=== PATIENT | female | born 1940 | race Caucasian/White ===

== ENCOUNTER 2020-06-02 19:20 | Inpatient (IN) | payer MEDICARE ==
[~2020-06-02] VITALS: Ht 157.5 cm; Wt 82.6 kg
[2020-06-02] MEDS ORDERED: SODIUM CHLORIDE 0.9% 1000ML 1,000 ML IV ONE (19:45)
[2020-06-02] MEDS ORDERED: CEFTRIAXONE SOD 1 GM/NS 50 ML 50 ML IV ONE (19:45)
[2020-06-02] MEDS ORDERED: ACETAMINOPHEN 325 MG TAB PO PRN ×2 (19:45→21:15)
[2020-06-02 19:54] LABS: BASOPHILS % 0.3 % (0.0-1.0); EOSINOPHILS # (AUTO) 0.1 (0.0-0.4); EOSINOPHILS % 0.9 % (0.0-6.0); HEMATOCRIT 50.5 % (34.2-44.1); LYMPHOCYTES # (AUTO) 1.2 (1.0-3.2); LYMPHOCYTES % 18.3 % (18.0-39.1); MEAN CORPUSCULAR HEMOGLOBIN 30.7 pg (28-32); MEAN CORPUSCULAR HGB CONC 31.7 g/dL (31-35); MEAN CORPUSCULAR VOLUME 96.7 fL (81-99); MONOCYTES # (AUTO) 0.5 (0.2-0.8); MONOCYTES % 7.2 % (4.4-11.3); PLATELET COUNT 221 x10e3/uL (140-360); RED BLOOD COUNT 5.22 x10e6/uL (3.6-5.1); RED CELL DISTRIBUTION WIDTH 13.4 % (11.7-14.4)
[2020-06-02 20:13] LABS: ALANINE AMINOTRANSFERASE 10 IU/L (0-55); ALBUMIN 3.8 g/dL (3.5-5.0); ALBUMIN/GLOBULIN RATIO 1.4 (0.8-2.0); ALKALINE PHOSPHATASE 72 IU/L (40-150); BLOOD UREA NITROGEN 15 mg/dL (7-26); BUN/CREATININE RATIO 19 (6-25); CALCIUM 8.9 mg/dL (8.4-10.2); CARBON DIOXIDE 26 mmol/L (22-29); CHLORIDE 103 mmol/L (98-107); CREATINE KINASE 46 IU/L (29-168); EST GLOMERULAR FILTRATION RATE > 60 ML/MIN (60-); GLUCOSE 108 mg/dL (74-118); SODIUM 141 mmol/L (136-145)
[2020-06-02] MEDS: AZITHROMYCIN 500MG/SOD CHL 0.9% 250ML BAG IV SCH (21:57)
[2020-06-02] MEDS: SODIUM CHLORIDE 0.9% 1000ML 1,000 ML IV SCH (21:57)
[2020-06-02 23:00] VITALS: BP 163/99
[2020-06-02 23:17] VITALS: BP 163/99
[2020-06-02] MEDS ORDERED: TEMAZEPAM15 MG PO (23:58)
[2020-06-03] VITALS (11 sets, daily range): BP systolic 142–174; BP diastolic 71–99
[2020-06-03] MEDS ORDERED: METOPROLOL TARTRATE 25 MG TAB PO SCH
[2020-06-03] MEDS: TEMAZEPAM 15 MG CAP PO PRN ×2 (00:04→23:00)
[2020-06-03] MEDS: SODIUM CHLORIDE 0.9% 1000ML 1,000 ML IV SCH ×4 (03:51→21:46)
[2020-06-03 05:26] LABS: BASOPHILS % 0.7 % (0.0-1.0); EOSINOPHILS # (AUTO) 0.1 (0.0-0.4); EOSINOPHILS % 1.6 % (0.0-6.0); HEMATOCRIT 45.6 % (34.2-44.1); HEMOGLOBIN 14.3 g/dL (12.0-16.0); LYMPHOCYTES # (AUTO) 1.1 (1.0-3.2); LYMPHOCYTES % 25.6 % (18.0-39.1); MEAN CORPUSCULAR HEMOGLOBIN 30.8 pg (28-32); MEAN CORPUSCULAR HGB CONC 31.4 g/dL (31-35); MEAN CORPUSCULAR VOLUME 98.3 fL (81-99); MONOCYTES # (AUTO) 0.4 (0.2-0.8); MONOCYTES % 9.7 % (4.4-11.3); NEUTROPHILS # (AUTO) 2.7 (2.1-6.9); NEUTROPHILS % 62.4 % (38.7-80.0); PLATELET COUNT 180 x10e3/uL (140-360); RED BLOOD COUNT 4.64 x10e6/uL (3.6-5.1); RED CELL DISTRIBUTION WIDTH 13.2 % (11.7-14.4)
[2020-06-03 05:56] LABS: ALANINE AMINOTRANSFERASE 8 IU/L (0-55); ALBUMIN/GLOBULIN RATIO 1.4 (0.8-2.0); ALKALINE PHOSPHATASE 58 IU/L (40-150); ANION GAP 12.8 mmol/L (8-16); BLOOD UREA NITROGEN 13 mg/dL (7-26); BUN/CREATININE RATIO 19 (6-25); CALCIUM 8.2 mg/dL (8.4-10.2); CARBON DIOXIDE 25 mmol/L (22-29); CHLORIDE 107 mmol/L (98-107); CREATININE, SERUM 0.68 mg/dL (0.57-1.11); EST GLOMERULAR FILTRATION RATE > 60 ML/MIN (60-); GLUCOSE 90 mg/dL (74-118); POTASSIUM 3.8 mmol/L (3.5-5.1); SODIUM 141 mmol/L (136-145)
[2020-06-03 06:22] LABS: CREATINE KINASE MB 0.6 ng/mL (0-5.0)
[2020-06-03] MEDS ORDERED: ZOLPIDEM TARTRATE 5 MG TAB PO PRN (06:45)
[2020-06-03] MEDS ORDERED: ONDANSETRON HCL INJ 2MG/ML 2ML 2 MG/ML VIAL IV PRN (06:45)
[2020-06-03] MEDS ORDERED: DOCUSATE SODIUM 100 MG CAP PO PRN (06:45)
[2020-06-03] MEDS: PIPER-TAZ 3.375 GM 50 ML IV SCH ×3 (07:25→17:28)
[2020-06-03] MEDS: METOPROLOL TARTRATE 25 MG TAB PO SCH ×3 (09:13→21:41)
[2020-06-03 10:36] LABS: CLARITY,URINE SL CLOUDY (CLEAR); COLOR,URINE YELLOW (YELLOW)
[2020-06-03 10:37] LABS: LEUKOCYTE ESTERASE ,URINE NEGATIVE (NEGATIVE); NITRITE,URINE NEGATIVE (NEGATIVE); PROTEIN,URINE DIPSTICK 1+ (NEGATIVE)
[2020-06-03 10:38] LABS: BACTERIA,URINE RARE /HPF; EPITHELIAL CELLS,URINE FEW /LPF; KETONES,URINE TRACE (NEGATIVE); URINE UROBILINOGEN 1 mg/dL (0.2 - 1)
[2020-06-03 13:30] LABS: CREATINE KINASE MB 0.8 ng/mL (0-5.0)
[2020-06-03] MEDS: ENOXAPARIN SOD INJ 40 MG/0.4 ML SYR SC SCH (17:28)
[2020-06-03] MEDS ORDERED: CEFTRIAXONE SOD 1 GRAM/0.9% SOD CHL 50ML BAG IV SCH (21:00)
[2020-06-03] MEDS: AZITHROMYCIN 500MG/SOD CHL 0.9% 250ML BAG IV SCH (21:41)
[2020-06-04] VITALS (7 sets, daily range): BP systolic 127–185; BP diastolic 76–101
[2020-06-04] MEDS: PIPER-TAZ 3.375 GM 50 ML IV SCH ×5 (00:01→23:56)
[2020-06-04] MEDS: SODIUM CHLORIDE 0.9% 1000ML 1,000 ML IV SCH (05:15)
[2020-06-04] MEDS: METOPROLOL TARTRATE 25 MG TAB PO SCH ×3 (06:23→21:28)
[2020-06-04] MEDS: ENOXAPARIN SOD INJ 40 MG/0.4 ML SYR SC SCH (17:00)
[2020-06-04] MEDS: AZITHROMYCIN 500MG/SOD CHL 0.9% 250ML BAG IV SCH (20:59)
[2020-06-04] MEDS: TEMAZEPAM 15 MG CAP PO PRN (22:22)
[2020-06-05] VITALS: BP 169/87
[2020-06-05 04:00] VITALS: BP 129/69
[2020-06-05] MEDS: PIPER-TAZ 3.375 GM 50 ML IV SCH (05:32)
[2020-06-05] MEDS: METOPROLOL TARTRATE 25 MG TAB PO SCH (06:00)
[2020-06-05] MEDS ORDERED: LOPRESSOR25 MG PO (06:27)
[2020-06-05] MEDS ORDERED: TESSALON PERLE100 MG PO ×2 (06:27)
[2020-06-05] MEDS ORDERED: DOXYCYCLINE HY100 MG PO (06:27)
[2020-06-05] MEDS ORDERED: LORATADINE10 MG PO (06:27)
[2020-06-05] MEDS ORDERED: CEFUROXIME250 MG PO (06:27)
[2020-06-05] MEDS ORDERED: ONDANSETRON HCL 4 MG ORAL DISINTEGRATING TAB PO PRN (08:15)
[2020-06-05 08:20] VITALS: BP 151/66
[2020-06-05 09:36] VITALS: BP 151/66
[2020-06-05] MEDS ORDERED: INFLUENZA VIRUS VAC SPLIT INJ 0.5 ML SYR IM ONE (10:00)
[2020-06-05] MEDS ORDERED: PNEUMOCOCCAL VACCINE POLYVALENT 23 MCG/0.5 ML VIAL IM ONE (10:00)
[2020-06-05] MEDS ORDERED: AZITHROMYCIN 250 MG TAB PO SCH (21:00)
== END 2020-06-05 10:20 | disposition home or self-care (01) | DRG 194 ==
LOC: ER 19:55 → ERHOLD 21:14 → MED/SURG2 22:48
PROVIDERS: ADMIT Internal Medicine; ATTEND Internal Medicine
DX: J18.9 Pneumonia, unspecified organism (principal); N39.0 Urinary tract infection, site not specified; K44.9 Diaphragmatic hernia without obstruction or gangrene; G47.00 Insomnia, unspecified; E66.9 Obesity, unspecified; Z68.33 Body mass index [BMI] 33.0-33.9, adult; Z11.59 Encounter for screening for other viral diseases; I10 Essential (primary) hypertension
CPT/HCPCS: 36415; 71250; 80053; 80061; 81001; 82550; 82553; 82948; 83036; 83605; 83880; 84484; 85025; 87040; 87086; 90732; 93005; 99284; G0009; J0456; J0696; J1650; J2543; J7030; U0002

== ENCOUNTER 2023-01-18 07:46 | Observation (INO) | payer MEDICARE ==
[2023-01-15 10:36] LABS: BASOPHILS % 0.4 % (0.0-1.0); EOSINOPHILS # (AUTO) 0.1 (0.0-0.4); EOSINOPHILS % 0.9 % (0.0-6.0); HEMATOCRIT 35.8 % (34.2-44.1); HEMOGLOBIN 10.7 g/dL (12.0-16.0); LYMPHOCYTES # (AUTO) 0.7 (1.0-3.2); LYMPHOCYTES % 12.7 % (18.0-39.1); MEAN CORPUSCULAR HEMOGLOBIN 25.9 pg (28-32); MEAN CORPUSCULAR HGB CONC 29.9 g/dL (31-35); MEAN CORPUSCULAR VOLUME 86.7 fL (81-99); MONOCYTES # (AUTO) 0.3 (0.2-0.8); NEUTROPHILS # (AUTO) 4.4 (2.1-6.9); NEUTROPHILS % 79.8 % (38.7-80.0); PLATELET COUNT 245 x10e3/uL (140-360); RED BLOOD COUNT 4.13 x10e6/uL (3.6-5.1); RED CELL DISTRIBUTION WIDTH 15.7 % (11.7-14.4)
[2023-01-18] VITALS (7 sets, daily range): BP systolic 136–171; BP diastolic 58–82; PULSE 82–89; RESP 15–20; TEMP 97.5–98.9; O2SAT 96–98
[~2023-01-18] VITALS: Ht 309.9 cm; Wt 82.6 kg
[~2023-01-18 07:46] MED LIST: ACETAMINOPHEN 1000 MG/100 ML 100 ML IV ONE; BIOTIN1 MG PEG; CEFUROXIME250 MG PO; CRESTOR10 MG PO; DOXYCYCLINE HY100 MG PO; GABAPENTIN100 MG PO; LOPRESSOR25 MG PO; LORATADINE10 MG PO; LOSARTAN POTASS25 MG PO; METHOCARBAMOL1000 MG PO; NAPROXEN250 MG PO; ROPIVACAINE 246.25 MG, EPINEPHRINE HCL 1:1000 1ML 0.5 MG, CLONIDINE HCL 0.08 MG, KETORO... INJ ONE; TEMAZEPAM15 MG PO; TESSALON PERLE100 MG PO
[2023-01-18] MEDS ORDERED: DEXAMETHASONE SOD PHOS 10 MG/1 ML VIAL ONE (08:16)
[2023-01-18] MEDS ORDERED: CELECOXIB 200 MG CAP ONE (08:16)
[2023-01-18] MEDS ORDERED: GABAPENTIN 300 MG CAP ONE (08:16)
[2023-01-18] MEDS ORDERED: LACTATED RINGER'S 1,000 ML ONE (08:17)
[2023-01-18] MEDS ORDERED: CEFAZOLIN SODIUM 2 GM ONE (08:17)
[2023-01-18] MEDS ORDERED: Vancomycin IV 1,000 MG ONE (08:32)
[2023-01-18] MEDS ORDERED: SODIUM CHLORIDE 0.9% 500ML 500 ML ONE (08:33)
[2023-01-18] MEDS ORDERED: TRANEXAMIC ACID 20 ML ONE (08:33)
[2023-01-18] MEDS ORDERED: ADVIL200 MG PO (08:45)
[2023-01-18] MEDS ORDERED: FENTANYL CITRATE/PF 100MCG/2 ML INJ ONE ×2 (09:07→13:03)
[2023-01-18] MEDS ORDERED: MIDAZOLAM HCL 2 MG/2 ML VIAL ONE (09:07)
[2023-01-18] MEDS ORDERED: HYDROCODONE/APAP 5MG-325MG TAB PO PRN (10:45)
[2023-01-18] MEDS ORDERED: ONDANSETRON HCL INJ 2MG/ML 2ML 2 MG/ML VIAL IV PRN (10:45)
[2023-01-18] MEDS ORDERED: DOCUSATE SODIUM 100 MG CAP PO PRN (10:45)
[2023-01-18] MEDS ORDERED: ACETAMINOPHEN 650 MG SUPP PR PRN (10:45)
[2023-01-18] MEDS ORDERED: ZOLPIDEM TARTRATE 5 MG TAB PO PRN (10:45)
[2023-01-18] MEDS ORDERED: DIPHENHYDRAMINE HCL INJ 50 MG/ML VIAL IV PRN (10:45)
[2023-01-18] MEDS ORDERED: HYDROCODONE/APAP 7.5MG-325MG 1 EA TAB PO ONE (11:50)
[2023-01-18] MEDS: HYDROCODONE/APAP 7.5MG-325MG 1 EA TAB PO PRN (11:50)
[2023-01-18] MEDS ORDERED: SEVOFLURANE INHAL SOLN 250 ML PEN BTL ONE (12:47)
[2023-01-18] MEDS ORDERED: LIDOCAINE HCL 2% LOCAL INJ 5 ML SDV VIAL INJ ONE (12:47)
[2023-01-18] MEDS ORDERED: ONDANSETRON HCL INJ 2MG/ML 2ML 2 MG/ML VIAL ONE (12:47)
[2023-01-18] MEDS ORDERED: EPHEDRINE SULFATE INJ 50 MG/ML VIAL ONE (12:47)
[2023-01-18] MEDS ORDERED: POVIDONE IODINE 0.05% 0.05 % ML PO ONE (12:47)
[2023-01-18] MEDS ORDERED: DEXAMETHASONE SOD PHOS INJ 4 MG/ML SDV ONE (12:47)
[2023-01-18] MEDS ORDERED: PROPOFOL IV EMULSION 10 MG/ML 20 ML VIAL ONE (12:47)
[2023-01-18] MEDS: SODIUM CHLORIDE 0.9% 1000ML 1,000 ML IV SCH ×2 (15:48→20:45)
[2023-01-18] MEDS: CELECOXIB 200 MG CAP PO SCH (16:38)
[2023-01-18] MEDS: ASPIRIN 325 MG TAB PO SCH (16:38)
[2023-01-19 05:52] LABS: HEMATOCRIT 32.1 % (34.2-44.1); HEMOGLOBIN 9.4 g/dL (12.0-16.0)
[2023-01-19] MEDS: SODIUM CHLORIDE 0.9% 1000ML 1,000 ML IV SCH (06:45)
[2023-01-19 08:00] VITALS: BP 121/56; PULSE 85; RESP 18; TEMP 98.2; O2SAT 97
[2023-01-19] MEDS: CELECOXIB 200 MG CAP PO SCH (08:49)
[2023-01-19] MEDS: ASPIRIN 325 MG TAB PO SCH (08:49)
[2023-01-19] MEDS ORDERED: CRESTOR 10MG PO SCH (09:00)
[2023-01-19] MEDS ORDERED: LOSARTAN POTASSIUM 25 MG TAB PO SCH (09:00)
[2023-01-19 09:20] VITALS: BP 121/56; PULSE 85; RESP 18; TEMP 98.2; O2SAT 97
[2023-01-19 09:31] VITALS: PULSE 80; RESP 18; O2SAT 93
[2023-01-19] MEDS ORDERED: ACETAMINOPHEN 1000 MG/100 ML IV PRN (10:45)
[2023-01-19] MEDS: HYDROCODONE/APAP 7.5MG-325MG 1 EA TAB PO PRN ×2 (11:01→14:48)
[2023-01-19 12:00] VITALS: BP 132/57; PULSE 82; RESP 19; TEMP 98.6; O2SAT 97
[2023-01-19] MEDS ORDERED: ONDANSETRON HCL 4 MG ORAL DISINTEGRATING TAB PO PRN (12:30)
[2023-01-19] MEDS ORDERED: GABAPENTIN 100 MG CAP PO SCH (13:00)
[2023-01-19 15:00] VITALS: BP 172/88; PULSE 89; RESP 19; TEMP 97.9; O2SAT 98
== END 2023-01-19 15:00 | disposition home health service (06) ==
LOC: OR 07:46 → PACU V 10:44 → MED/SURG 12:47
PROVIDERS: ADMIT Specialist; ATTEND Specialist
DX: M17.12 Unilateral primary osteoarthritis, left knee (principal); D64.9 Anemia, unspecified; I10 Essential (primary) hypertension; E78.5 Hyperlipidemia, unspecified; Z96.651 Presence of right artificial knee joint; Z01.810 Encounter for preprocedural cardiovascular examination; Z01.812 Encounter for preprocedural laboratory examination; Z01.818 Encounter for other preprocedural examination; Z79.899 Other long term (current) drug therapy
CPT/HCPCS: 27447; 36415 ×2; 71046; 73560; 85014; 85018; 85025; 86850; 86900; 86920; 93005; 94799 ×2; 97116 ×2; 97161; 97530 ×2; G0378 ×2; J0131; J0171; J0690 ×2; J1100 ×2; J1885; J2001; J2250; J2405; J2704; J2795; J3010; J3370; J7030; J7040; J7121